=== PATIENT | male | born 1995 | race Two or more races ===

== ENCOUNTER 2017-08-24 15:19 | Emergency (ER) | payer SELFPAY ==
--- NOTE | 2017-08-24 15:40 | ER Document Report ---
ED Medical Screen (RME) - General Chief Complaint: Psych Problem Stated Complaint: ALTERED MENTAL STATUS Time Seen by Provider: 08/24/17 15:39 Mode of Arrival: Ambulatory Information source: Patient, Relative Notes: 21-year-old male presents with concerns for suicidal ideations. Patient states that last night a friend of his overdosed, he called EMS and police raided the house and multiple people were arrested. Patient notes history of IV drug use I have greeted and performed a rapid initial assessment of this patient. A comprehensive ED assessment and evaluation of the patient, analysis of test results and completion of the medical decision making process will be conducted by additional ED providers. PHYSICAL EXAMINATION: GENERAL: Well-appearing, well-nourished and in no acute distress. HEAD: Atraumatic, normocephalic. EYES: Pupils equal round extraocular movements intact, conjunctiva are normal. ENT: Nares patent NECK: Normal range of motion LUNGS: No respiratory distress Musculoskeletal: Normal range of motion NEUROLOGICAL: Normal speech, normal gait. PSYCH: tangential thoughts SKIN: Warm, Dry, normal turgor, no rashes or lesions noted. TRAVEL OUTSIDE OF THE [place] IN LAST 30 DAYS: No - Related Data Allergies/Adverse Reactions: No Known Allergies Allergy (Verified 07/19/15 12:37) Past Medical History - Social History Chew tobacco use (# tins/day): No Frequency of alcohol use: Occasional Drug Abuse: Heroin Renal/ Medical History: Denies: Hx Peritoneal Dialysis Physical Exam - Vital signs Vitals: Temp Pulse Resp BP Pulse Ox 97.7 F 103 H 17 115/71 100 08/24/17 15:26 08/24/17 15:08/24/17 15:08/24/17 15:08/24/17 15:26 Course - Vital Signs Vital signs: Temp Pulse Resp BP Pulse Ox 97.7 F 103 H 17 115/71 100 08/24/17 15:26 08/24/17 15:26 08/24/17 15:26 08/24/17 15:26 08/24/17 15:26
--- NOTE | 2017-08-24 15:54 | PSYCHOLOGICAL NOTE ---
Psych Note - Psych Note Psych Note: Reason For Consult: Substance abuse and suicidal ideation 21-year-old male presents with concerns for suicidal ideations. Patient states that last night a friend of his overdosed, he called EMS and police raided the house and multiple people were arrested. Patient notes history of IV drug use. Clinician was alerted by [facility] staff the patient was in the parking lot and refusing to come in. Clinician went into the parking lot to speak with patient. He discloses wanting information on substance abuse however refuses to answer questions on suicidal ideations stating "is not my first rodeo I know if I answer that question that leads to involuntary commitment." Patient was commenced to come into [facility] for assistance. Patient's friends disclosed the patient stated today that he was she had a gun and they are concerned that he will do something to harm himself. They continued disclosed the patient is currently under the influence. Patient is alert and orientated to person, place, time and circumstance. Patient is currently under the influence which impairs cognitive functioning ( i.e. insight, judgment and impulse control are poor). Patient refused to answer questions on suicidal ideation. 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 Patient is currently under the influence and friends report the patient has made suicidal comments. Patient will be re-evaluated when no longer under the influence. Dr. Allen was consulted and the care and management this patient; attending physician is agreement with recommendations and disposition.
--- NOTE | 2017-08-24 16:14 | ER Document Report ---
Addendum entered and electronically signed by GABRIEL LINDSEY LCSWA 08/25/17 10: 37: Discharge - Discharge Clinical Impression: Substance abuse Clinical Impression: (Ruled Out): Substance abuse in family Condition: Stable Disposition: HOME, SELF-CARE Additional Instructions: COCAINE ABUSE: Cocaine causes many dangerous medical problems. Problems can occur even with "usual" amounts. Cocaine affects judgement, creating a sense of invulnerability. Cocaine users often make bad decisions that seem "great" at the time. Most cocaine users eventually will be hurt by bad job performance, damaged personal relations, crime, and unsafe sexual practices. Toxic effects of cocaine can include seizures, hallucinations, delusions, high blood pressure, heart damage, or sudden . There's always the risk of a "bad batch." But heart attacks, brain hemorrhages, or cardiac arrest can occur unpredictably even with "normal" use. Injection of cocaine is risky for abscesses, endocarditis (heart infection) , pneumonia, and AIDS. Withdrawal from cocaine often causes anxiety and drug cravings. Some users become paranoid and psychotic. Many treatment programs are available, but you must make the decision to quit. Medication can be prescribed to control the symptoms of cocaine toxicity (beta blockers or benzodiazepines). Withdrawal symptoms may require tranquilizers. AMPHETAMINE / METHAMPHETAMINE ABUSE: Amphetamines are addicting stimulants. Amphetamines overstimulate the nervous system and give a false feeling of power and mastery. These drugs may be obtained as prescription pills for weight loss, narcolepsy, or attention- deficit disorder. More often they're bought as an illegal street drug, methamphetamine (crank, crystal, speed). Using amphetamines repeatedly can lead to serious medical problems including malnutrition, severe depression, and paranoia. It can take increasing amounts to feel good. Eventually, there will be a "burn out." When you go off amphetamines there is a period of depression that may last for weeks or even months. High doses of amphetamines can cause seizures, confusion, hallucinations, delusions, high blood pressure, muscle damage, heart damage, or sudden . Many times these deadly complications occur even with "normal" doses. Injection of amphetamines is risky for developing abscesses, endocarditis ( heart infection), pneumonia, and AIDS. Withdrawal from amphetamines often causes anxiety, depression, and drug cravings. Some users become paranoid and psychotic. There may be cramps, nausea , and vomiting. Many treatment programs are available, but you must make the decision to quit. Medication can be prescribed to control the symptoms of amphetamine toxicity (beta blockers or benzodiazepines). Withdrawal symptoms may require tranquilizers. FOLLOW-UP CARE: Please follow-up with your chosen [facility] treatment. You have been provided both inpatient and outpatient information. If you experience worsening or a significant change in your symptoms, notify the physician immediately or return to the Emergency Department at any time for re-evaluation. Referrals: [facility] [Outside] - Follow up as needed Scribe Attestation: 08/24/17 16:38 I personally performed the services described in the documentation, reviewed and edited the documentation which was dictated to the scribe in my presence, and it accurately records my words and actions. Original Note: ED Psych Disorder / Suicide <LEONARDO LAI - Last Filed: 08/24/17 17:46> - General Mode of Arrival: Ambulatory Information source: Patient TRAVEL OUTSIDE OF THE [place] IN LAST 30 DAYS: No <JORDY VALDES - Last Filed: 08/24/17 18:18> <GABRIEL LINDSEY - Last Filed: 08/25/17 10:33> <DELFINA SHELL - Last Filed: 08/25/17 11:48> - General Chief Complaint: Psych Problem Stated Complaint: ALTERED MENTAL STATUS Time Seen by Provider: 08/24/17 15:39 Notes: 21-year-old male presenting today with complaints of a history of IV drug abuse and wanting help with detoxing. Patient states he will "inject anything" but his recent drug of choice is methamphetamine via injection. Friend at bedside states at times the patient has suicidal ideation but he denies that currently. (JORDY VALDES) - Related Data Allergies/Adverse Reactions: No Known Allergies Allergy (Verified 07/19/15 12:37) Past Medical History - General Information source: Patient, Relative - Social History Smoking Status: Current Every Day Smoker Cigarette use (# per day): Yes Chew tobacco use (# tins/day): No Frequency of alcohol use: Occasional Drug Abuse: Heroin, Methamphetamine Lives with: Family Family History: Reviewed & Not Pertinent Patient has suicidal ideation: No Patient has homicidal ideation: No Renal/ Medical History: Denies: Hx Peritoneal Dialysis <JORDY VALDES - Last Filed: 08/24/17 18:18> Review of Systems - Review of Systems Constitutional: See HPI, Other - endorses drug abuse EENT: No symptoms reported Cardiovascular: No symptoms reported Respiratory: No symptoms reported Gastrointestinal: No symptoms reported Genitourinary: No symptoms reported Male Genitourinary: No symptoms reported Musculoskeletal: No symptoms reported Skin: No symptoms reported Hematologic/Lymphatic: No symptoms reported Neurological/Psychological: No symptoms reported -: Yes All other systems reviewed and negative <JORDY VALDES - Last Filed: 08/24/17 18:18> Physical Exam <LEONARDO LAI - Last Filed: 08/24/17 17:46> <JORDY VALDES - Last Filed: 08/24/17 18:18> <GABRIEL LINDSEY - Last Filed: 08/25/17 10:33> <DELFINA SHELL - Last Filed: 08/25/17 11:48> - Vital signs Vitals: Temp Pulse Resp BP Pulse Ox 97.7 F 103 H 17 115/71 100 08/24/17 15:26 08/24/17 15:26 08/24/17 15:26 08/24/17 15:26 08/24/17 15:26 - Notes Notes: Physical Exam: General: Alert, endorses history of drug abuse. HEENT: Normocephalic. Atraumatic. PERRL. Extraocular movements intact. Oropharynx clear. Neck: Supple. Non-tender. Respiratory: No respiratory distress. Clear and equal breath sounds bilaterally. Cardiovascular: Regular rate and rhythm. Abdominal: Normal Inspection. Non-tender. No distension. Normal Bowel Sounds. Back: Non-tender. No deformity or step off. Extremities: Moves all four extremities. Upper extremities: Normal inspection. Normal ROM. Lower extremities: Normal inspection. No edema. Normal ROM. Neurological: Normal cognition. AAOx4. Normal speech. Psychological: Normal affect. Normal Mood. Denies suicidal ideation. Skin: Warm. Dry. Normal color. (JORDY VALDES) Course - Laboratory Result Diagrams: 08/24/17 15:57 08/24/17 15:57 <LEONARDO LAI - Last Filed: 08/24/17 17:46> - Laboratory Result Diagrams: 08/24/17 15:57 08/24/17 15:57 <JORDY VALDES - Last Filed: 08/24/17 18:18> <GABRIEL LINDSEY - Last Filed: 08/25/17 10:33> - Laboratory Result Diagrams: 08/24/17 15:57 08/24/17 15:57 <DELFINA SHELL - Last Filed: 08/25/17 11:48> - Re-evaluation Re-evalutation: 08/24/17 17:46 Patient medically clear at this time awaiting psych consult for suicidal ideation and drug abuse. (LEONARDO LAI) 08/25/17 11:47 Patient reevaluated at this time. Patient resting company stating that he is ready to leave and was supposed to have left 45 minutes ago. Denies any homicidal suicidal ideation patient will be handed off to agree to family services. IVC rescinded patient discharged (DELFINA SHELL) - Vital Signs Vital signs: Temp Pulse Resp BP Pulse Ox 97.6 F 64 16 100/56 L 98 08/25/17 06:00 08/25/17 06:00 08/25/17 06:00 08/25/17 06:00 08/25/17 06:00 - Laboratory Laboratory results interpreted by me: 08/24/17 08/24/17 08/24/17 15:57 15:57 15:57 WBC 11.0 H Monocytes % 13.3 H Absolute Monocytes 1.5 H Calcium 10.4 H Direct Bilirubin 0.5 H Total Protein 9.1 H Albumin 5.1 H Urine Protein 100 H Urine Bilirubin SMALL H Urine Urobilinogen 4.0 H Salicylates < 1.0 L Acetaminophen < 10 L Discharge <LEONARDO LAI - Last Filed: 08/24/17 17:46> <JORDY VALDES - Last Filed: 08/24/17 18:18> <GABRIEL LINDSEY - Last Filed: 08/25/17 10:33> <DELFINA SHELL - Last Filed: 08/25/17 11:48> - Discharge Clinical Impression: Substance abuse Condition: Stable Disposition: HOME, SELF-CARE Additional Instructions: COCAINE ABUSE: Cocaine causes many dangerous medical problems. Problems can occur even with "usual" amounts. Cocaine affects judgement, creating a sense of invulnerability. Cocaine users often make bad decisions that seem "great" at the time. Most cocaine users eventually will be hurt by bad job performance, damaged personal relations, crime, and unsafe sexual practices. Toxic effects of cocaine can include seizures, hallucinations, delusions, high blood pressure, heart damage, or sudden . There's always the risk of a "bad batch." But heart attacks, brain hemorrhages, or cardiac arrest can occur unpredictably even with "normal" use. Injection of cocaine is risky for abscesses, endocarditis (heart infection) , pneumonia, and AIDS. Withdrawal from cocaine often causes anxiety and drug cravings. Some users become paranoid and psychotic. Many treatment programs are available, but you must make the decision to quit. Medication can be prescribed to control the symptoms of cocaine toxicity (beta blockers or benzodiazepines). Withdrawal symptoms may require tranquilizers. AMPHETAMINE / METHAMPHETAMINE ABUSE: Amphetamines are addicting stimulants. Amphetamines overstimulate the nervous system and give a false feeling of power and mastery. These drugs may be obtained as prescription pills for weight loss, narcolepsy, or attention- deficit disorder. More often they're bought as an illegal street drug, methamphetamine (crank, crystal, speed). Using amphetamines repeatedly can lead to serious medical problems including malnutrition, severe depression, and paranoia. It can take increasing amounts to feel good. Eventually, there will be a "burn out." When you go off amphetamines there is a period of depression that may last for weeks or even months. High doses of amphetamines can cause seizures, confusion, hallucinations, delusions, high blood pressure, muscle damage, heart damage, or sudden . Many times these deadly complications occur even with "normal" doses. Injection of amphetamines is risky for developing abscesses, endocarditis ( heart infection), pneumonia, and AIDS. Withdrawal from amphetamines often causes anxiety, depression, and drug cravings. Some users become paranoid and psychotic. There may be cramps, nausea , and vomiting. Many treatment programs are available, but you must make the decision to quit. Medication can be prescribed to control the symptoms of amphetamine toxicity (beta blockers or benzodiazepines). Withdrawal symptoms may require tranquilizers. FOLLOW-UP CARE: Please follow-up with your chosen [facility] treatment. You have been provided both inpatient and outpatient information. If you experience worsening or a significant change in your symptoms, notify the physician immediately or return to the Emergency Department at any time for re-evaluation. Referrals: [facility] [Outside] - Follow up as needed Scribe Attestation: 08/24/17 16:38 I personally performed the services described in the documentation, reviewed and edited the documentation which was dictated to the scribe in my presence, and it accurately records my words and actions. (JORDY VALDES) Scribe Documentation - Scribe Written by Scribe:: Delores Berg, 08/24/2017 1828 acting as scribe for :: Mikhail <JORDY VALDES - Last Filed: 08/24/17 18:18>
[2017-08-24 16:26] LABS: ABSOLUTE BASOPHILS # (AUTO) 0.1 10^3/uL (0.0-0.2); ABSOLUTE EOSINOPHILS # (AUTO) 0.2 10^3/uL (0.0-0.6); ABSOLUTE LYMPHOCYTES (AUTO) 3.2 10^3/uL (0.5-4.7); ABSOLUTE MONOCYTES (AUTO) 1.5 10^3/uL (0.1-1.4); BASOPHILS % (AUTO) 0.9 % (0-2); EOSINOPHILS % (AUTO) 1.9 % (0-6); HEMATOCRIT 46.1 % (37.9-51.0); LYMPHOCYTES % (AUTO) 29.2 % (13-45); MEAN CORPUSCULAR HEMOGLOBIN 29.9 pg (27.0-33.4); MEAN CORPUSCULAR HGB CONC 34.7 g/dL (32.0-36.0); MEAN CORPUSCULAR VOLUME 86 fl (80-97); MONOCYTES % (AUTO) 13.3 % (3-13); PLATELET COUNT 391 10^3/uL (150-450); RED BLOOD COUNT 5.35 10^6/uL (4.35-5.55); RED CELL DISTRIBUTION WIDTH 13.5 % (11.5-14.0); SEGMENTED NEUTROPHILS % (AUTO) 54.7 % (42-78); TOTAL CELLS COUNTED % (AUTO) 100 %
[2017-08-24 16:39] LABS: APPEARANCE,URINE SLIGHTLY-CLOUDY; BILIRUBIN,URINE SMALL (NEGATIVE); COLOR,URINE AMBER; GLUCOSE, URINE NEGATIVE (NEGATIVE); KETONES,URINE NEGATIVE (NEGATIVE); LEUKOCYTE ESTERASE,URINE NEGATIVE (NEGATIVE); NITRITE,URINE NEGATIVE (NEGATIVE); PROTEIN,URINE 100 mg/dL (NEGATIVE); URINE SPECIFIC GRAVITY 1.034
[2017-08-24 16:51] LABS: ALANINE AMINOTRANSFERASE 36 U/L (21-72); ALBUMIN 5.1 g/dL (3.5-5.0); ALKALINE PHOSPHATASE 77 U/L (38-126); ANION GAP 17 (5-19); ASPARTATE AMINO TRANSFERASE 31 U/L (17-59); BILIRUBIN,DIRECT 0.5 mg/dL (0.0-0.4); BILIRUBIN,TOTAL 0.9 mg/dL (0.2-1.3); BLOOD UREA NITROGEN 17 mg/dL (7-20); CALCIUM 10.4 mg/dL (8.4-10.2); CARBON DIOXIDE 25 mmol/L (22-30); CHLORIDE 101 mmol/L (98-107); GLUCOSE 78 mg/dL (75-110); POTASSIUM 4.1 mmol/L (3.6-5.0); SODIUM 142.7 mmol/L (137-145); TOTAL PROTEIN 9.1 g/dL (6.3-8.2)
[2017-08-24 16:52] LABS: ALCOHOL < 10 mg/dL (NONE DETECTED)
[2017-08-24 16:53] LABS: ACETAMINOPHEN < 10 ug/mL (10-30); SALICYLATE < 1.0 mg/dL (2.0-20.0)
[2017-08-24 17:20] LABS: URINE BARBITURATES SCREEN NEGATIVE; URINE BENZODIAZEPINES SCREEN NEGATIVE; URINE COCAINE SCREEN UNCONFIRMED POSITIVE; URINE MARIJUANA (THC) SCREEN UNCONFIRMED POSITIVE; URINE METHADONE SCREEN NEGATIVE; URINE PHENCYCLIDINE SCREEN NEGATIVE
--- NOTE | 2017-08-25 06:14 | EKG REPORT ---
SEVERITY:- ABNORMAL ECG - SINUS RHYTHM RIGHT ATRIAL ABNORMALITY ST ELEV, PROBABLE NORMAL EARLY REPOL PATTERN : Confirmed by: Steve Taylor MD 25-Aug-2017 06:13:27
--- NOTE | 2017-08-25 10:19 | ER Document Report ---
Doctor's Note Notes: 08/25/17 10:19 Patient has been seen and evaluated resting comfortably no acute distress. Laboratory values previous provider note and vital signs have been evaluated. Patient otherwise looks to be stable for disposition/transfer.
[2017-08-25 11:54] VITALS: BP 105/60
--- NOTE | 2017-08-26 14:46 | PSYCHOLOGICAL NOTE ---
Psych Note - Psych Note Psych Note: Reason For Consult: Substance abuse and suicidal ideation 21-year-old male presents with concerns for suicidal ideations. Patient states that last night a friend of his overdosed, he called EMS and police raided the house and multiple people were arrested. Patient notes history of IV drug use. Patient confirms he still interested in receiving information in regards to sobriety. He denies suicidal ideations stating; " I know my friends told you yesterday I was, but I wasn't... Sometimes the world hits you so hard all at once?... That was what it was like yesterday." Patient disclosed that he is not really overly concerned about losing his place to stay. He reports that there was somebody at the home who had taken too big to hit of heroin and appeared to be having difficulty. He reports that everyone around him said he was fine not to worry about it but he felt that the person needed medical assistance so called 911. He disclosed that because of that the person who lives there got evicted so they will had to move out. "I can always find somewhere else to crash that is not a big deal...I was a big deal that the prince needed some help and no one was going to do anything about it." Patient is alert and orientated to person, place, time and circumstance. Mood is euthymic with congruent affect. Patient denies suicidal homicidal ideation. Delusions are absent behaviors congruent with intact reality based presentation i.e. organized and linear thought process. Eye contact is well- maintained. Conversational speech was within normal rate, tone and prosody. Intellectual abilities appear to be within the average range. Attention and concentration were good. Insight, judgment, impulse control are historically poor due to substance abuse however patient demonstrated good judgment (even while under the influence) the previous day when someone needed medical assistance. 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 Patient no longer meets IVC criteria per [place] GS 122C. Patient discloses wanting assistance in sobriety. Clinician contacted [facility] for continued assistance in obtaining inpatient substance abuse treatment. Patient was provided resource list of both inpatient and outpatient substance abuse treatment options. Dr. Allen was consulted and the care and management this patient; attending physician is agreement with recommendations and disposition.
== END 2017-08-25 12:15 | disposition home or self-care (01) ==
LOC: ER 15:19
DX: F15.10 Other stimulant abuse, uncomplicated (principal); F11.10 Opioid abuse, uncomplicated; F17.210 Nicotine dependence, cigarettes, uncomplicated
CPT/HCPCS: 36415; 80053; 80307; 81001; 85025; 93005; 93010; 99285